=== PATIENT | female | born 1990 | race Caucasian/White ===

== ENCOUNTER 2020-10-25 04:12 | Emergency (ER) | payer BC ==
[~2020-10-25] VITALS: Ht 167.6 cm; Wt 59.0 kg
[2020-10-25 05:39] VITALS: BP 114/74
--- NOTE | 2020-10-26 09:31 | EKG ---
[address] [address] ELECTROCARDIOGRAM REPORT Name: JANICE COLLINS Room #: [facility]P [facility]ITAL[facility] [id number] Admission: 10/25/20 Attend Phys: Discharge: 10/25/20 Date of : [birth year] Report #: [id number] [facility] ED Test Date: 2020-10-25 Test Time: 04:26:22 Pat Name: JANICE COLLINS Department: Room: Gender: F Technical Supervisor: AM : 1990 Requested By: Omega Reina Order Number: [id number] MD: Nolan Romo Measurements Intervals [place] Rate: 96 P: 77 W[place]: 170 QRS: 80 QRSD: 89 T: 36 QT: 348 QTc: 440 Interpretive Statements Sinus rhythm No previous ECG available for comparison Electronically Signed On 10-26-2020 9:31:05 [employer] by Nolan Romo [email or web address] <ELECTRONICALLY SIGNED> By: Nolan Romo MD 10/26/20 0931 0426 0426 Nolan Romo MD /EPI
== END 2020-10-25 05:50 | disposition home or self-care (01) ==
LOC: ER 04:12
DX: R00.2 Palpitations (principal); F41.9 Anxiety disorder, unspecified; R00.0 Tachycardia, unspecified; K21.9 Gastro-esophageal reflux disease without esophagitis; Z88.6 Allergy status to analgesic agent